=== PATIENT | female | born 1940 | race Two or more races ===

== ENCOUNTER 2017-01-14 08:54 | Day surgery (SDC) | payer OTHER ==
[2017-01-13 11:01] VITALS: BMI 34.3
[2017-01-14 09:20] VITALS: TEMP 98.3
[2017-01-14] MEDS ORDERED: MIDAZOLAM HCL 2 MG/2 ML SINGLE DOSE VIAL ONE (11:10)
[2017-01-14] MEDS ORDERED: PROPOFOL 20 ML ONE ×2 (11:10→11:43)
[2017-01-14] MEDS ORDERED: BUPIVACAINE HCL/PF 0.5% (5MG/ML) 10 ML VIAL ONE (11:25)
[2017-01-14] MEDS ORDERED: LIDOCAINE HCL 1%, 10 MG/ML (20ML VIAL) ONE (11:25)
[2017-01-14] MEDS ORDERED: LIDOCAINE 1%/EPI 1:100000 (50 ML MULTI DOSE VIAL) ONE (11:25)
[2017-01-14] MEDS ORDERED: ceFAZolin SODIUM 1 GM VIAL IVPB ONE (11:32)
[2017-01-14] MEDS ORDERED: LIDOCAINE HCL 1%, 10 MG/ML (20ML VIAL) IJ ONE (11:42)
[2017-01-14] MEDS ORDERED: DEXAMETHASONE SOD PHOSPHATE 4 MG/1 ML VIAL ONE (11:55)
--- NOTE | 2017-01-14 12:51 | OP ---
Operative Note - Note: Operative Date: 01/14/17 Pre-Operative Diagnosis: Volar Ganglion Left Wrist Operation: Excision of Ganglion Cyst Left Volar Wrist Post-Operative Diagnosis: Same as Pre-op Surgeon: Pee Ocampo Anesthesia: Fractional Specimens Removed: Ganglion Cyst Operative Report Dictated: Yes
[2017-01-14] MEDS ORDERED: oxyCODONE HCL 5 MG TABLET PO PRN (12:52)
[2017-01-14 16:21] VITALS: BP 127/76; PULSE 77
--- NOTE | 2017-01-15 10:40 | OP ---
DATE OF OPERATION: 01/14/2017 AGE: 77 SEX: Female. PREOPERATIVE DIAGNOSIS: Large ganglion cyst, left volar wrist. SURGEON: Pee Ocampo MD ANESTHESIA: Fractional. 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 The cyst appears bluish in color, and there is a normal Timur test on that side. PROCEDURE: The patient is in the supine position, and intravenous sedation was administered by the anesthesiologist, as was local anesthesia about the surgical site. Local anesthesia consisted of 1% plain lidocaine, approximately 6 mL. After allowing sufficient time for the anesthesia to take effect, the area was prepped and draped in usual sterile fashion, and a curvilinear incision was designed and made using a number 15-scalpel blade. Incision was carried down to the level of the cyst wall which was dissected free using a Littler scissor. The base of the ganglion cyst was dissected, and a stalk extending down through the wrist fascia was appreciated. The fascia was opened as was the transverse carpal ligament, and the stalk of the cyst was followed down to the scapholunate joint and was excised with a small window of the joint. Small bleeding areas were noted despite a left upper arm tourniquet that had been inflated prior to the procedure. These were treated with electrocautery, and closure was performed. The transverse carpal ligament was closed with several 4-0 Biosyn sutures in a buried fashion, and skin was closed with a continuous horizontal mattress suture of 5-0 nylon. A compressive dressing was applied and secured with a Kerlix wrap, as was a 4-inch volar splint, which was secured with a 4-inch Felix wrap. The patient was then taken from the operating room to the recovery room in satisfactory condition, having tolerated the procedure well. Margaret SWARTZ/[id number]
--- NOTE | 2017-01-15 15:34 | PATH ---
Surgical Pathology Report Patient Name: LONG TURPIN [facility]. Rec. #: [id number] /Age/Gender: 1940 (Age: 77) / F Account: [id number] Location: [facility] SURGICAL Taken: 01/14/2017 Received: 01/14/2017 Reported: 01/15/2017 Physicians: Pee Ocampo M.D. Specimen(s) Received GANGLION CYST LEFT VOLAR RADIAL WRIST Clinical History Ganglion cyst left volar/radial wrist Final Diagnosis SOFT TISSUE, LEFT VOLAR/RADIAL WRIST, EXCISION: GANGLION CYST. AREAS CONSISTENT WITH RESOLVING HEMORRHAGE PRESENT. Electronically Signed Manny Collado M.D. Gross Description Received in formalin labeled "ganglion cyst left volar, radial wrist," are 2 pink-hatfield soft tissue fragments measuring 0.6 and 1.5 cm in greatest dimension. Sectioning of the larger portion displays a focally disrupted cyst. The larger portion is serially sectioned and the specimen is entirely submitted in one cassette. /01/14/2017/01/14/2017
== END 2017-01-14 16:20 | disposition home or self-care (01) ==
LOC: JASU-SURG 08:54
PROVIDERS: ATTEND Plastic Surgery
PROC: 0RBP0ZZ Excision of Left Wrist Joint, Open Approach (ICD-10-PCS; principal; 2017-01-14 10:00)
DX: M67.432 Ganglion, left wrist (principal)
CPT/HCPCS: 88304-TC